=== PATIENT | male | born 1955 | race Caucasian/White ===

== ENCOUNTER → 2017-01-12 | Outpatient (CLI) | payer BC ==
[2012-09-23 22:31] VITALS: BP 130/84
[2017-01-12 09:55] LABS: CREATININE 1.85 mg/dL (0.70-1.30)
--- NOTE | 2017-01-13 11:00 | CT ---
HISTORY: Pain Study: CT abdomen and pelvis without contrast Comparison: None Technique: Multiple axial images of the abdomen and pelvis were obtained from the lung bases to the pubic symphy sis after oral contrast only. Automated does control was utilized. Findings: The lung bases are clear. Th there is mild hypertrophy of the caudate and left lobes of the liver wit h fatty replacement throughout. No focal lesion is seen. The spleen is unremarkable. The gallbladder, pancreas , and bile ducts are normal. The adrenals are normal. The kidneys are normal size with no h ydronephrosis, renal stone, or mass. The ureters are normal caliber. There are diverticula throughout the sigmoid colon with no pericolonic inflammation. The appendix is not well visualized. The mesente ry is unremarkable. The bladder is unremarkable. No adenopathy or ascites is seen . There are moderat e degenerative changes seen throughout the spine with no aggressive osseous lesion. IMPRESSION: Mild chronic liver changes and fatty replacement throughout the parenchyma with no acute intra-abdomi nal abnormality seen. No hydronephrosis or renal stones and no urinary obstruction. Mild diverticulosis of the sigmoid colon with no pericolonic inflammation. Reported By:
== END | disposition home or self-care (01) | DRG 392 ==
LOC: RAD 09:27
PROVIDERS: ATTEND Internal Medicine Gastroenterology
DX: R10.84 Generalized abdominal pain (principal); K57.90 Diverticulosis of intestine, part unspecified, without perforation or abscess without bleeding
CPT/HCPCS: 36415; 74176; 82565; 84520